=== PATIENT | female | born 1940 | race Caucasian/White ===

== ENCOUNTER 2016-12-17 14:25 | Outpatient (CLI) | payer MEDICARE, BC ==
[2016-12-17 12:56] LABS: BASOPHILS # (AUTO) 0.1 10^3/uL (0.0-0.1); BASOPHILS % (AUTO) 1.1 %; EOSINOPHILS # (AUTO) 0.4 10^3/uL (0.0-0.7); EOSINOPHILS % (AUTO) 4.4 %; HCT - HEMATOCRIT 35.2 % (37.0-47.0); HGB - HEMOGLOBIN 11.7 g/dL (12.0-16.0); LYMPHOCYTES % (AUTO) 20.3 %; MEAN CORPUSCULAR HEMOGLOBIN 29.9 pg (27.0-31.0); MEAN CORPUSCULAR HGB CONC 33.3 g/dL (32.0-36.0); MEAN CORPUSCULAR VOLUME 89.8 fL (81.0-99.0); MEAN PLATELET VOLUME 8.6 fL (7.9-10.8); MONOCYTES # (AUTO) 0.9 10^3/uL (0.0-1.0); MONOCYTES % (AUTO) 9.5 %; NEUTROPHILS # (AUTO) 6.3 10^3/uL (1.5-6.6); NEUTROPHILS % (AUTO) 64.7 %; NUCLEATED RED BLOOD CELLS AUTO 0.1 /100WBC; RED BLOOD COUNT 3.92 10^6/uL (4.20-5.40); UNCORRECTED WHITE BLOOD COUNT 9.7 x10^3/uL; WHITE BLOOD COUNT 9.7 x10^3/uL (4.8-10.8)
[2016-12-17 13:15] LABS: CALCIUM 10.4 mg/dL (8.5-10.3); CARBON DIOXIDE - CO2 29 mmol/L (21-32); CHLORIDE 95 mmol/L (101-111); GLUCOSE 102 mg/dL (70-100); POTASSIUM 3.8 mmol/L (3.5-5.0); SODIUM 133 mmol/L (135-145)
[2016-12-17 13:33] LABS: ALBUMIN/GLOBULIN RATIO 1.4 (1.0-2.2); BILIRUBIN,TOTAL 0.6 mg/dL (0.2-1.0); BUN - BLOOD UREA NITROGEN 28 mg/dL (6-20); CHOL/HDL RATIO 3.1 (<4.4); CHOLESTEROL 172 mg/dL; CREATININE 1.5 mg/dL (0.4-1.0); GFR - MDRD 34 (>89); HDL CHOLESTEROL 56 mg/dL; LDL/HDL RATIO 1.7 (<4.4); TOTAL PROTEIN 6.9 g/dL (6.7-8.2); TRIGLYCERIDES 103 mg/dL; VLDL CHOLESTEROL 21 mg/dL
== END 2016-12-17 14:26 | disposition home or self-care (01) ==
LOC: LAB.WCP 14:25
PROVIDERS: ATTEND Family Medicine
DX: I10 Essential (primary) hypertension (principal); E03.9 Hypothyroidism, unspecified; E78.5 Hyperlipidemia, unspecified; D64.9 Anemia, unspecified
CPT/HCPCS: 36415; 80053; 80061; 84443; 85025

== ENCOUNTER 2016-12-27 12:50 | Outpatient (CLI) | payer MEDICARE, BC | END 2016-12-27 12:51 | disposition home or self-care (01) | LOC: DI 12:50 | PROVIDERS: ATTEND Family Medicine | DX: R01.1 Cardiac murmur, unspecified (principal); I51.7 Cardiomegaly | CPT/HCPCS: 93306 ==

== ENCOUNTER 2017-03-31 20:51 | Outpatient (CLI) | payer MEDICARE, BC ==
[2017-03-31 19:13] LABS: CALCIUM 10.1 mg/dL (8.5-10.3); CREATININE 1.4 mg/dL (0.4-1.0); MAGNESIUM 1.8 mg/dL (1.7-2.8)
== END 2017-03-31 20:52 | disposition home or self-care (01) ==
LOC: LAB.WCP 20:51
PROVIDERS: ATTEND Internal Medicine Cardiovascular Disease
DX: I10 Essential (primary) hypertension (principal)
CPT/HCPCS: 36415; 80048; 83735; 84443

== ENCOUNTER 2017-07-06 12:18 | Outpatient (CLI) | payer MEDICARE, BC ==
--- NOTE | 2017-07-07 10:26 | Mammography Report ---
DIGITAL SCREENING MAMMOGRAM: 07/06/2017 CLINICAL INDICATION: A 76-year-old for screening. COMPARISON: 02/2016, 02/2015, 01/2014, 01/2013, 01/2012, 01/2011, 01/2010. TECHNIQUE: Routine CC and MLO projections were obtained of the breasts. FINDINGS: The breasts again demonstrate fatty replacement bilaterally. Coarse and punctate, typically benign calcifications are present. No suspicious masses, clustered microcalcifications, or regions of architectural distortion are identified. IMPRESSION: BENIGN FINDINGS. RECOMMENDATION: Routine annual screening unless otherwise clinically indicated. BIRADS CATEGORY 2 - BENIGN FINDINGS. STANDARD QUALIFYING STATEMENTS: 1. This examination was reviewed with the aid of Computer-Aided Detection (CAD). 2. A negative or benign imaging report should not delay biopsy if clinically suspicious findings are present. Consider surgical consultation if warranted. More than 5% of cancers are not identified by imaging. 3. Dense breasts may obscure an underlying neoplasm. TD: 07/07/2017 10:25
== END 2017-07-06 12:19 | disposition home or self-care (01) ==
LOC: DI.N 12:18
PROVIDERS: ATTEND Family Medicine
DX: Z12.31 Encounter for screening mammogram for malignant neoplasm of breast (principal)
CPT/HCPCS: 77067

== ENCOUNTER 2017-07-23 11:41 | Outpatient (CLI) | payer MEDICARE, BC ==
[2017-07-23 19:23] LABS: BASOPHILS # (AUTO) 0.1 10^3/uL (0.0-0.1); BASOPHILS % (AUTO) 1.2 %; EOSINOPHILS # (AUTO) 0.2 10^3/uL (0.0-0.7); EOSINOPHILS % (AUTO) 3.2 %; LYMPHOCYTES # (AUTO) 1.9 10^3/uL (1.5-3.5); LYMPHOCYTES % (AUTO) 25.4 %; MEAN CORPUSCULAR HEMOGLOBIN 30.5 pg (27.0-31.0); MEAN CORPUSCULAR HGB CONC 32.7 g/dL (32.0-36.0); MEAN CORPUSCULAR VOLUME 93.2 fL (81.0-99.0); MEAN PLATELET VOLUME 8.5 fL (7.9-10.8); MONOCYTES # (AUTO) 0.7 10^3/uL (0.0-1.0); MONOCYTES % (AUTO) 9.1 %; NEUTROPHILS # (AUTO) 4.5 10^3/uL (1.5-6.6); NEUTROPHILS % (AUTO) 61.1 %; PLT - PLATELET COUNT 297 10^3/uL (130-450); RED BLOOD COUNT 3.61 10^6/uL (4.20-5.40); RED CELL DISTRIBUTION WIDTH 16.2 % (12.0-15.0); WHITE BLOOD COUNT 7.4 x10^3/uL (4.8-10.8)
[2017-07-23 19:51] LABS: ALBUMIN/GLOBULIN RATIO 1.3 (1.0-2.2); ALKALINE PHOSPHATASE 39 IU/L (42-121); ALT ALANINE AMINOTRANSFERASE 16 IU/L (10-60); AST ASPARTATE AMINOTRANSFERASE 23 IU/L (10-42); BILIRUBIN,TOTAL 0.4 mg/dL (0.2-1.0); BUN - BLOOD UREA NITROGEN 36 mg/dL (6-20); CALCIUM 10.5 mg/dL (8.5-10.3); CARBON DIOXIDE - CO2 29 mmol/L (21-32); CHLORIDE 98 mmol/L (101-111); CHOL/HDL RATIO 3.5 (<4.4); CHOLESTEROL 179 mg/dL; CREATININE 1.3 mg/dL (0.4-1.0); GFR - MDRD 40 (>89); GLUCOSE 95 mg/dL (70-100); HDL CHOLESTEROL 51 mg/dL; LDL CHOLESTEROL,CALCULATED 110 mg/dL; LDL/HDL RATIO 2.2 (<4.4); SODIUM 134 mmol/L (135-145); TOTAL PROTEIN 7.1 g/dL (6.7-8.2); VLDL CHOLESTEROL 18 mg/dL
== END 2017-07-23 11:42 | disposition home or self-care (01) ==
LOC: LAB.WCP 11:41
PROVIDERS: ATTEND Family Medicine
DX: E78.5 Hyperlipidemia, unspecified (principal); I12.9 Hypertensive chronic kidney disease with stage 1 through stage 4 chronic kidney disease, or unspecified chronic kidney disease; N18.9 Chronic kidney disease, unspecified; E03.9 Hypothyroidism, unspecified; D64.9 Anemia, unspecified
CPT/HCPCS: 36415; 80053; 80061; 83721; 84443; 85025

== ENCOUNTER 2017-10-07 08:00 | Outpatient (CLI) | payer MEDICARE, BC ==
[2017-10-07 19:02] LABS: CALCIUM 10.6 mg/dL (8.5-10.3); CREATININE 1.2 mg/dL (0.4-1.0); MAGNESIUM 1.9 mg/dL (1.7-2.8)
== END 2017-10-07 08:01 ==
LOC: LAB.WCP 08:00
PROVIDERS: ATTEND Internal Medicine Cardiovascular Disease
DX: I49.3 Ventricular premature depolarization (principal)
CPT/HCPCS: 36415; 80048; 83735

== ENCOUNTER → 2018-01-21 | Outpatient (CLI) | payer MEDICARE, BC ==
[2018-01-21 18:46] LABS: BASOPHILS # (AUTO) 0.1 10^3/uL (0.0-0.1); BASOPHILS % (AUTO) 0.9 %; EOSINOPHILS # (AUTO) 0.3 10^3/uL (0.0-0.7); EOSINOPHILS % (AUTO) 3.7 %; HGB - HEMOGLOBIN 11.5 g/dL (12.0-16.0); LYMPHOCYTES % (AUTO) 25.2 %; MEAN CORPUSCULAR HGB CONC 33.4 g/dL (32.0-36.0); MEAN CORPUSCULAR VOLUME 92.8 fL (81.0-99.0); MEAN PLATELET VOLUME 8.2 fL (7.9-10.8); MONOCYTES # (AUTO) 0.9 10^3/uL (0.0-1.0); MONOCYTES % (AUTO) 10.9 %; NEUTROPHILS # (AUTO) 4.8 10^3/uL (1.5-6.6); NEUTROPHILS % (AUTO) 59.3 %; PLT - PLATELET COUNT 311 10^3/uL (130-450); RED BLOOD COUNT 3.69 10^6/uL (4.20-5.40); WHITE BLOOD COUNT 8.1 x10^3/uL (4.8-10.8)
[2018-01-21 18:59] LABS: ALBUMIN 3.8 g/dL (3.2-5.5); ALBUMIN/GLOBULIN RATIO 1.2 (1.0-2.2); BILIRUBIN,TOTAL 0.7 mg/dL (0.2-1.0); CALCIUM 9.6 mg/dL (8.5-10.3); CREATININE 1.2 mg/dL (0.4-1.0); TOTAL PROTEIN 7.1 g/dL (6.7-8.2)
== END ==
LOC: LAB.WCP 11:40
PROVIDERS: ATTEND Family Medicine
DX: N18.9 Chronic kidney disease, unspecified (principal); E78.5 Hyperlipidemia, unspecified; E03.9 Hypothyroidism, unspecified; I10 Essential (primary) hypertension; D64.9 Anemia, unspecified
CPT/HCPCS: 36415; 80053; 84443; 85025

== ENCOUNTER 2018-01-24 14:32 | Outpatient (CLI) | payer MEDICARE, BC | END 2018-01-24 14:33 | disposition EMS.NT | LOC: EMS 14:32 | PROVIDERS: ATTEND Surgery | DX: M25.512 Pain in left shoulder (principal); R20.0 Anesthesia of skin; W01.0XXA Fall on same level from slipping, tripping and stumbling without subsequent striking against object, initial encounter; Y92.008 Other place in unspecified non-institutional (private) residence as the place of occurrence of the external cause ==

== ENCOUNTER 2018-05-06 14:06 | Outpatient (CLI) | payer MEDICARE, BC ==
--- NOTE | 2018-05-07 14:49 | XRAY Report ---
Reason: BACK PAIN LUMBAR Procedure Date: 05/06/2018 Accession Number: [id number] / [id number] Procedure: WCP - Lumbar Spine 2 View CPT Code: FULL RESULT: EXAM: LUMBOSACRAL SPINE RADIOGRAPHY EXAM DATE: 05/06/2018 02:29 PM. CLINICAL HISTORY: Back pain. COMPARISONS: None. TECHNIQUE: 2 views. FINDINGS: Alignment: There is levoscoliosis of the lumbar spine with Jose angle of 11 degrees from T10-L4. There is 10 mm, grade 1 anterolisthesis at L4-L5. Bones: Five oqf-vol-cjleqkd lumbar vertebral bodies are present. No conspicuous displaced fracture is demonstrated. Disks: Severe degenerative disk disease present at L3-L4, asymmetric towards the left secondary to scoliosis. Moderate disk height loss present elsewhere. Facets: Moderate-severe facet degeneration at L3-L4, L4-L5, and L5-S1. Sacroiliac Joints: Alignment is within normal limits. Soft Tissues: Visualized bowel gas pattern is unremarkable. Left hip prosthesis partially visualized. Aortic atherosclerotic calcification demonstrated. IMPRESSION: 1. Multilevel degenerative changes, as described above. 2. Mild levoscoliosis of the lumbar spine. 3. Grade 1 anterolisthesis at L4-L5. RADIA
== END 2018-05-06 14:07 | disposition home or self-care (01) ==
LOC: DI.WCP 14:06
PROVIDERS: ATTEND Family Medicine
DX: M51.36 Other intervertebral disc degeneration, lumbar region (principal); M47.9 Spondylosis, unspecified; M41.86 Other forms of scoliosis, lumbar region
CPT/HCPCS: 72100

== ENCOUNTER 2018-07-22 13:26 | Outpatient (CLI) | payer MEDICARE, BC ==
--- NOTE | 2018-07-22 16:25 | Mammography Report ---
Reason: CR: 1.9 DRAWN: [id number] Procedure Date: 07/22/2018 Accession Number: [id number] / [id number] Procedure: MGN - Screening Mammo Dig Bilat CPT Code: FULL RESULT: EXAM: Screening Mammo Dig Bilat DATE: 07/22/2018 2:22 PM CLINICAL HISTORY: Routine screening TECHNIQUE: (B) - Bilateral CC and MLO views were obtained. COMPARISON: 07/06/2017, 03/18/2016, 03/02/2015 and 02/10/2014 PARENCHYMAL PATTERN: (F) - The breasts demonstrate diffuse fatty replacement bilaterally. FINDINGS: There is no significant interval change. There are no suspicious masses, calcifications, or areas of distortion. IMPRESSION: Negative examination. BI-RADS category 1. RECOMMENDATION: (ANNUAL) - Recommend routine annual screening mammography. BI-RADS CATEGORY: (1) - Negative. STANDARD QUALIFYING STATEMENTS: 1. This examination was not reviewed with the aid of Computer-Aided Detection (CAD). 2. A negative or benign imaging report should not preclude biopsy if clinically suspicious findings are present. 3. Dense breasts may obscure an underlying neoplasm. 4. This examination was reviewed without the aid of 3D breast imaging (tomosynthesis).
== END 2018-07-22 13:27 | disposition home or self-care (01) ==
LOC: DI.N 13:26
DX: Z12.31 Encounter for screening mammogram for malignant neoplasm of breast (principal)
CPT/HCPCS: 77067

== ENCOUNTER 2018-10-01 13:26 | Outpatient (CLI) | payer MEDICARE, BC ==
--- NOTE | 2018-10-01 18:15 | MRI Report ---
Reason: LUMBAR RADICULOPATHY Procedure Date: 10/01/2018 Accession Number: [id number] / [id number] Procedure: MRI - Lumbar Spine W/O CPT Code: FULL RESULT: MRI LUMBAR SPINE WITHOUT CONTRAST. INDICATION: 77-year-old female with lumbar radiculopathy. TECHNIQUE: 1. Sagittal STIR, T1 and T2. 2. Axial T1 and T2. COMPARISON: 08/14/2010 FINDINGS: Radiographs (05/06/2018 have been reviewed, confirming the presence of 5 zpy-xqo-njlsrks, lumbar type vertebrae. There is a mild, levoconvex lumbar scoliosis with apex at about the L2-L3 disk level. In the sagittal plane again demonstrated is anterolisthesis of L4 on L5. The anterior subluxation measures about 8 mm, essentially unchanged. No definite L4 pars interarticularis defect is identified. The anterior subluxation is probably from degenerative facet arthrosis. There has been interval development of a very minor anterior subluxation of L3 on L4, also likely degenerative in nature. In addition, there is new, minor retrolisthesis of T12 on L1 and L1 on L2. Alignment is otherwise unremarkable. Again demonstrated is mild anterior wedging of the T11 vertebral body, unchanged. The vertebral body heights are otherwise preserved. No evidence of recent compression fracture. There is absence of normal T2 signal from the disks at all levels. Schmorl node deformities are seen in the vertebral endplates at all levels from T10-T11 to L4 and L5. There is new, mild to moderate disk space narrowing at T12-L1. Mild to space narrowing is seen at L1-L2 (new). In addition, there has been interval development of moderate to severe disk space narrowing at L3-L4 and at least moderate narrowing at L4-L5. The disk space heights are otherwise preserved. Type I reactive marrow changes are identified in the vertebral endplates at L3-L4 on the right and had L4-L5 on the left. A few intraosseous hemangioma at are demonstrated. The marrow signal intensity is otherwise unremarkable. The conus has a normal appearance, terminating in appropriate fashion at about the T12-L1 disk level. There is no abnormal thickening or lipomatous change of the filum. Axial images: T11-T12: No disk herniation or spinal stenosis. The neural foramina are widely patent. T12-L1: Retrolisthesis. Circumferential disk bulge. Small intraforaminal/extraforaminal protrusions bilaterally. No significant spinal stenosis. The neural foramina are widely patent. L1-L2: Retrolisthesis. Circumferential disk bulge. Small intraforaminal/extraforaminal protrusions or extrusions bilaterally. The subarticular zones are narrowed; however, the no impingement of traversing right or left-sided nerve roots is seen. No significant central zone spinal stenosis. Mild foraminal stenoses. L2-L3: Broad-based, left intraforaminal/extraforaminal extrusion. Degenerative facet arthrosis with mild bony hypertrophy. Mild to moderate redundancy of the ligamenta flava. The subarticular zones are narrowed left greater than right. However, there is no obvious impingement of traversing left L3 nerve root. No significant central zone spinal stenosis. Mild foraminal stenoses. L3-L4: Anterolisthesis with associated uncovering of the disk. In addition, there is a small broad-based, superiorly directed central/right paracentral extrusion and small left paracentral extrusion. New, broad-based left intraforaminal/extraforaminal protrusion. New, broad-based right intraforaminal/extraforaminal extrusion. Degenerative facet arthrosis with mild to moderate bony hypertrophy. Mild to moderate redundancy of the ligamenta flava. The subarticular zones are stenosed, right greater than left. There could potentially be compromise of traversing L4 nerve roots especially on the right. There is moderate to severe central zone spinal stenosis. Mild to moderate left and moderate to severe right foraminal stenoses. Perineural fat surrounding the exiting right L3 nerve root is partially effaced. L4-L5: Anterolisthesis with associated uncovering of the disk. In addition, there is a broad-based, superiorly directed posterior extrusion that is new. Degenerative facet arthrosis with quite marked bony hypertrophy, similar to previous examination. Mild to moderate redundancy of the ligamenta flava. Broad-based intraforaminal/extraforaminal extrusion on the left is new. Superiorly directed, right-sided intraforaminal extrusion is also new. There is severe generalized (central and subarticular zone) spinal stenosis, showing little interval progression when compared to the previous examination. There are moderate to severe foraminal stenoses bilaterally. The perineural fat surrounding exiting L4 nerve roots appears partially effaced. This is new. L5-S1: Small, broad-based, posterior protrusion confined to the ventral epidural fat. Small extraforaminal protrusions are seen bilaterally. Again demonstrated is fairly advanced degenerative facet arthrosis with quite marked bony hypertrophy. In addition, there is mild to moderate redundancy of the ligamenta flava. There is left subarticular zone narrowing that appears relatively severe and has progressed since the previous examination. There certainly could be compromise of traversing left S1 nerve root. No central zone spinal stenosis or significant right subarticular zone narrowing. There is moderate left foraminal stenosis, unchanged. No right foraminal narrowing. Moderate to marked fatty atrophy is identified in the posterior paraspinal musculature. IMPRESSION: 1. Again demonstrated is a grade I degenerative anterolisthesis of L4 on L5, essentially unchanged. There has been interval development of minor degenerative anterolisthesis of L3 on L4. 2. Degenerative disk and facet changes are seen throughout the lumbar spine showing definite interval progression when compared to the previous MRI study of 08/14/2010. There are associated, central, subarticular and foraminal zone stenoses. The most significant stenoses are as follows: A. At L3-L4 there are new, subarticular zone stenoses, worse on the right than the left. There certainly could be compromise of traversing L4 nerve roots especially on the right. In addition, there is potentially significant right L3-L4 foraminal stenosis. There could be compromise of exiting right L3 nerve root. B. At L4-L5 again demonstrated is severe generalized (central and subarticular zone causing apparent spinal stenosis. In addition, there has been interval progression in foraminal narrowing with relatively severe stenosis now demonstrated bilaterally. The perineural fat surrounding the exiting L4 nerve roots is effaced and there could be irritation or mild impingement of the L4 nerve roots. C. Interval progression in left subarticular zone stenosis at L5-S1. There certainly could be compromise of the traversing left S1 nerve root. Recommend clinical correlation for possible left S1 radiculopathy.
== END 2018-10-01 13:27 | disposition home or self-care (01) ==
LOC: DI 13:26
PROVIDERS: ATTEND Family Medicine
DX: M51.16 Intervertebral disc disorders with radiculopathy, lumbar region (principal); M48.061 Spinal stenosis, lumbar region without neurogenic claudication
CPT/HCPCS: 72148

== ENCOUNTER 2018-12-01 10:24 | Outpatient (CLI) | payer MEDICARE, BC ==
[2018-12-01 13:04] LABS: ALBUMIN 3.9 g/dL (3.2-5.5); ALBUMIN/GLOBULIN RATIO 1.3 (1.0-2.2); ALKALINE PHOSPHATASE 52 IU/L (42-121); ALT ALANINE AMINOTRANSFERASE 18 IU/L (10-60); AST ASPARTATE AMINOTRANSFERASE 24 IU/L (10-42); BILIRUBIN,TOTAL 0.7 mg/dL (0.2-1.0); BUN - BLOOD UREA NITROGEN 29 mg/dL (6-20); CALCIUM 9.3 mg/dL (8.5-10.3); CARBON DIOXIDE - CO2 32 mmol/L (21-32); CHLORIDE 95 mmol/L (101-111); CHOL/HDL RATIO 3.2 (<4.4); CHOLESTEROL 175 mg/dL; CREATININE 1.2 mg/dL (0.4-1.0); GFR - MDRD 43 (>89); GLUCOSE 87 mg/dL (70-100); HDL CHOLESTEROL 55 mg/dL; LDL CHOLESTEROL,CALCULATED 106 mg/dL; LDL/HDL RATIO 1.9 (<4.4); SODIUM 133 mmol/L (135-145); TOTAL PROTEIN 6.8 g/dL (6.7-8.2); VLDL CHOLESTEROL 14 mg/dL
== END 2018-12-01 10:30 | disposition home or self-care (01) ==
LOC: LAB.N 10:24
PROVIDERS: ATTEND Internal Medicine Cardiovascular Disease
DX: I10 Essential (primary) hypertension (principal); R78.5 Finding of other psychotropic drug in blood
CPT/HCPCS: 36415; 80053; 80061; 83721

== ENCOUNTER 2018-12-28 15:10 | Outpatient (CLI) | payer MEDICARE, BC ==
--- NOTE | 2018-12-28 17:07 | DEXA Report ---
Reason: OSTEOPOROSIS Procedure Date: 12/28/2018 Accession Number: [id number] / [id number] Procedure: DEX - Dexa Spine and/or Hip CPT Code: FULL RESULT: EXAM: Dexa Spine and/or Hip DATE: 12/28/2018 3:30 PM CLINICAL HISTORY: OSTEOPOROSIS TECHNIQUE: Dual energy x-ray absorptiometry (DXA) was performed on a [employer] System. Regions measured are the AP Spine, femoral neck, and if needed forearm. COMPARISON: None. In accordance with the International Society for Clinical Densitometry (ISCD) guidelines, data from previous exams may be reanalyzed using current recommendations and techniques. This is done to allow a more accurate basis for comparison with the current study. FINDINGS: The data for the lumbar spine is as follows: BMD (g/cm/cm) T-SCORE Z-SCORE REGION L1 1.180 0.4 1.5 L2 1.128 -0.6 0.4 L3 1.426 1.9 2.9 L4 1.615 3.5 4.5 TOTAL 1.361 1.5 2.5 NOTE: All evaluable vertebrae are used for classification The data for the hip is as follows: BMD (g/cm/cm) T-SCORE Z-SCORE REGION Neck 1.014 -0.2 1.4 TOTAL 0.978 -0.2 1.1 NOTE: The femoral neck or total proximal femur, whichever is lowest, is used for classification. IMPRESSION: THE WHO CLASSIFICATION BASED ON THE INTERNATIONAL REFERENCE STANDARD IS NORMAL. THE FRACTURE RISK IS NOT INCREASED. RECOMMENDATION: Patients with diagnosis of osteoporosis or osteopenia should have regular bone mineral density assessment. For those eligible for Medicare, routine testing is allowed once every 2 years. Testing frequency can be increased for patients who have rapidly progressing disease or for those who are receiving medical therapy to restore bone mass. COMMENT: World Health Organization (WHO) definitions for osteoporosis and osteopenia: NORMAL BMD: T-score at -1.0 or higher, fracture risk is low OSTEOPENIA BMD: T-score between -1.0 and -2.5, fracture risk is increased. OSTEOPOROSIS BMD: T-score at -2.5 or lower, fracture risk is high. National Osteoporosis Foundation recommends: 1. Obtain adequate dietary calcium (at least 1200 mg per day) and vitamin D (400-800 international units per day). 2. Participate, as appropriate, in regular weightbearing and muscle-strengthening exercise. 3. Avoid tobacco use and reduce alcohol and caffeine intake. 4. For more detailed information see the website at www.NOF.org.
== END 2018-12-28 15:11 | disposition home or self-care (01) ==
LOC: DI 15:10
PROVIDERS: ATTEND Family Medicine
DX: M81.0 Age-related osteoporosis without current pathological fracture (principal)
CPT/HCPCS: 77080

== ENCOUNTER 2019-09-02 08:00 | Outpatient (CLI) | payer MEDICARE, BC ==
[2019-09-02 18:55] LABS: BASOPHILS # (AUTO) 0.1 10^3/uL (0.0-0.1); BASOPHILS % (AUTO) 0.9 %; EOSINOPHILS # (AUTO) 0.5 10^3/uL (0.0-0.7); EOSINOPHILS % (AUTO) 4.2 %; LYMPHOCYTES # (AUTO) 2.3 10^3/uL (1.5-3.5); LYMPHOCYTES % (AUTO) 20.3 %; MEAN CORPUSCULAR HEMOGLOBIN 30.5 pg (27.0-31.0); MEAN CORPUSCULAR HGB CONC 32.2 g/dL (32.0-36.0); MEAN CORPUSCULAR VOLUME 94.8 fL (81.0-99.0); MEAN PLATELET VOLUME 9.8 fL (7.9-10.8); MONOCYTES # (AUTO) 1.3 10^3/uL (0.0-1.0); MONOCYTES % (AUTO) 11.4 %; NEUTROPHILS # (AUTO) 7.1 10^3/uL (1.5-6.6); NEUTROPHILS % (AUTO) 62.8 %; PLT - PLATELET COUNT 431 10^3/uL (130-450); RED BLOOD COUNT 3.28 10^6/uL (4.20-5.40); RED CELL DISTRIBUTION WIDTH 18.3 % (12.0-15.0); WHITE BLOOD COUNT 11.4 x10^3/uL (4.8-10.8)
[2019-09-02 19:11] LABS: ALBUMIN 3.8 g/dL (3.2-5.5); ALBUMIN/GLOBULIN RATIO 1.2 (1.0-2.2); BILIRUBIN,TOTAL 0.6 mg/dL (0.2-1.0); CALCIUM 9.2 mg/dL (8.5-10.3); CREATININE 1.7 mg/dL (0.4-1.0); MAGNESIUM 2.7 mg/dL (1.7-2.8); TOTAL PROTEIN 6.9 g/dL (6.7-8.2)
== END 2019-09-02 23:59 | disposition home or self-care (01) ==
LOC: LAB.WCP 08:00
PROVIDERS: ATTEND Family Medicine
DX: E83.52 Hypercalcemia (principal); E83.41 Hypermagnesemia; N17.9 Acute kidney failure, unspecified
CPT/HCPCS: 36415; 80053; 82330; 83735; 85025

== ENCOUNTER 2019-09-16 08:00 | Outpatient (CLI) | payer MEDICARE, BC ==
[2019-09-16 18:13] LABS: BASOPHILS # (AUTO) 0.1 10^3/uL (0.0-0.1); BASOPHILS % (AUTO) 0.8 %; EOSINOPHILS # (AUTO) 0.5 10^3/uL (0.0-0.7); EOSINOPHILS % (AUTO) 5.4 %; HGB - HEMOGLOBIN 9.3 g/dL (12.0-16.0); LYMPHOCYTES # (AUTO) 2.2 10^3/uL (1.5-3.5); LYMPHOCYTES % (AUTO) 22.3 %; MEAN CORPUSCULAR HEMOGLOBIN 29.3 pg (27.0-31.0); MEAN CORPUSCULAR HGB CONC 30.9 g/dL (32.0-36.0); MONOCYTES # (AUTO) 0.7 10^3/uL (0.0-1.0); MONOCYTES % (AUTO) 7.2 %; NEUTROPHILS # (AUTO) 6.3 10^3/uL (1.5-6.6); NEUTROPHILS % (AUTO) 63.7 %; PLT - PLATELET COUNT 379 10^3/uL (130-450); RED BLOOD COUNT 3.17 10^6/uL (4.20-5.40); RED CELL DISTRIBUTION WIDTH 17.9 % (12.0-15.0)
[2019-09-16 18:30] LABS: ALBUMIN 3.9 g/dL (3.2-5.5); ALBUMIN/GLOBULIN RATIO 1.2 (1.0-2.2); BILIRUBIN,TOTAL 0.6 mg/dL (0.2-1.0); CALCIUM 9.3 mg/dL (8.5-10.3); CREATININE 1.8 mg/dL (0.4-1.0); TOTAL PROTEIN 7.2 g/dL (6.7-8.2)
== END 2019-09-16 23:59 | disposition home or self-care (01) ==
LOC: LAB.WCP 08:00
PROVIDERS: ATTEND Family Medicine
DX: N17.9 Acute kidney failure, unspecified (principal); E83.52 Hypercalcemia
CPT/HCPCS: 36415; 80053; 83519; 83970; 85025

== ENCOUNTER 2019-10-05 16:30 | Outpatient (CLI) | payer MEDICARE, BC ==
[2019-10-05 18:57] LABS: ALBUMIN 4.4 g/dL (3.2-5.5); ALBUMIN/GLOBULIN RATIO 1.3 (1.0-2.2); BILIRUBIN,TOTAL 0.5 mg/dL (0.2-1.0); CALCIUM 9.9 mg/dL (8.5-10.3); CREATININE 1.6 mg/dL (0.4-1.0); TOTAL PROTEIN 7.8 g/dL (6.7-8.2)
== END 2019-10-05 23:59 | disposition home or self-care (01) ==
LOC: LAB.WCP 16:30
PROVIDERS: ATTEND Family Medicine
DX: N18.9 Chronic kidney disease, unspecified (principal)
CPT/HCPCS: 36415; 80053

== ENCOUNTER 2020-05-08 08:00 | Outpatient (CLI) | payer MEDICARE, BC ==
[2020-05-08 17:53] LABS: BASOPHILS # (AUTO) 0.1 10^3/uL (0.0-0.1); EOSINOPHILS # (AUTO) 0.3 10^3/uL (0.0-0.7); EOSINOPHILS % (AUTO) 3.6 %; HGB - HEMOGLOBIN 10.5 g/dL (12.0-16.0); LYMPHOCYTES % (AUTO) 23.9 %; MEAN CORPUSCULAR HEMOGLOBIN 29.8 pg (27.0-31.0); MEAN CORPUSCULAR VOLUME 93.2 fL (81.0-99.0); MEAN PLATELET VOLUME 9.9 fL (7.9-10.8); MONOCYTES % (AUTO) 12.4 %; NEUTROPHILS # (AUTO) 4.9 10^3/uL (1.5-6.6); NEUTROPHILS % (AUTO) 58.7 %; PLT - PLATELET COUNT 283 10^3/uL (130-450); RED BLOOD COUNT 3.52 10^6/uL (4.20-5.40); RED CELL DISTRIBUTION WIDTH 17.2 % (12.0-15.0); WHITE BLOOD COUNT 8.3 x10^3/uL (4.8-10.8)
[2020-05-08 18:05] LABS: CALCIUM 9.2 mg/dL (8.5-10.3); CREATININE 1.4 mg/dL (0.4-1.0); PHOSPHORUS 4.4 mg/dL (2.5-4.6)
== END 2020-05-08 23:59 | disposition home or self-care (01) ==
LOC: LAB.WCP 08:00
PROVIDERS: ATTEND Internal Medicine Nephrology
DX: N18.30 Chronic kidney disease, stage 3 unspecified (principal)
CPT/HCPCS: 36415; 80069; 85025

== ENCOUNTER 2020-07-19 08:00 | Outpatient (CLI) | payer MEDICARE, BC ==
[2020-07-19 18:52] LABS: ABSOLUTE RETICS # AUTO 0.048 10^6/uL (0.020-0.110); BASOPHILS # (AUTO) 0.1 10^3/uL (0.0-0.1); EOSINOPHILS # (AUTO) 0.2 10^3/uL (0.0-0.7); EOSINOPHILS % (AUTO) 2.8 %; HCT - HEMATOCRIT 36.3 % (37.0-47.0); HGB - HEMOGLOBIN 11.7 g/dL (12.0-16.0); MEAN CORPUSCULAR HGB CONC 32.2 g/dL (32.0-36.0); MEAN CORPUSCULAR VOLUME 93.1 fL (81.0-99.0); MEAN PLATELET VOLUME 9.9 fL (7.9-10.8); MONOCYTES # (AUTO) 0.9 10^3/uL (0.0-1.0); MONOCYTES % (AUTO) 11.4 %; NEUTROPHILS # (AUTO) 4.8 10^3/uL (1.5-6.6); NEUTROPHILS % (AUTO) 59.5 %; PLT - PLATELET COUNT 275 10^3/uL (130-450); RED CELL DISTRIBUTION WIDTH 16.6 % (12.0-15.0); RETICULOCYTE COUNT % (AUTO) 1.24 % (0.5-2.3)
[2020-07-19 19:24] LABS: THYROID STIMULATING HORMONE 1.97 uIU/mL (0.34-5.60)
[2020-07-19 19:26] LABS: % IRON SATURATION 24 % (20-50); ALBUMIN 4.2 g/dL (3.2-5.5); ALBUMIN/GLOBULIN RATIO 1.3 (1.0-2.2); ALKALINE PHOSPHATASE 56 IU/L (42-121); ALT ALANINE AMINOTRANSFERASE 17 IU/L (10-60); AST ASPARTATE AMINOTRANSFERASE 25 IU/L (10-42); BILIRUBIN,TOTAL 0.7 mg/dL (0.2-1.0); BUN - BLOOD UREA NITROGEN 33 mg/dL (6-20); CALCIUM 9.7 mg/dL (8.5-10.3); CARBON DIOXIDE - CO2 29 mmol/L (21-32); CHLORIDE 93 mmol/L (101-111); CHOL/HDL RATIO 3.3 (<4.4); CHOLESTEROL 230 mg/dL; CREATININE 1.2 mg/dL (0.4-1.0); GFR - MDRD 43 (>89); GLUCOSE 91 mg/dL (70-100); HDL CHOLESTEROL 70 mg/dL; IRON 88 ug/dL (28-170); LDL CHOLESTEROL,CALCULATED 145 mg/dL; LDL/HDL RATIO 2.1 (<4.4); PHOSPHORUS 4.6 mg/dL (2.5-4.6); POTASSIUM 4.7 mmol/L (3.5-5.0); SODIUM 131 mmol/L (135-145); TOTAL IRON BINDING CAPACITY 374 ug/dL (250-450); TOTAL PROTEIN 7.4 g/dL (6.7-8.2); TRANSFERRIN 267 mg/dL (192-382); TRIGLYCERIDES 74 mg/dL; VLDL CHOLESTEROL 15 mg/dL
[2020-07-19 19:31] LABS: FERRITIN 39.5 ng/mL (11.0-306.8)
== END 2020-07-19 23:59 | disposition home or self-care (01) ==
LOC: LAB.WCP 08:00
PROVIDERS: ATTEND Internal Medicine
DX: N18.9 Chronic kidney disease, unspecified (principal); E78.5 Hyperlipidemia, unspecified; D64.9 Anemia, unspecified; E03.9 Hypothyroidism, unspecified
CPT/HCPCS: 36415; 80053; 80061; 82306; 82607; 82668; 82728; 83540; 83721; 83970; 84100; 84443; 84466; 85025; 85045

== ENCOUNTER 2020-07-23 08:00 | Outpatient (CLI) | payer MEDICARE, BC ==
[2020-07-23 20:44] LABS: BILIRUBIN,URINE NEGATIVE (NEGATIVE); GLUCOSE, URINE (UA) NEGATIVE (NEGATIVE); KETONES,URINE (UA) NEGATIVE (NEGATIVE); LEUKOCYTE ESTERASE, URINE SMALL (NEGATIVE); NITRITE,URINE NEGATIVE (NEGATIVE); OCCULT BLOOD,URINE NEGATIVE (NEGATIVE); PROTEIN,URINE NEGATIVE (NEGATIVE); UROBILINOGEN,URINE 0.2 (NORMAL) E.U./dL (NORMAL)
[2020-07-23 20:55] LABS: CLARITY,URINE HAZY (CLEAR)
[2020-07-23 21:00] LABS: BACTERIA,URINE Many /HPF (None Seen); RBC,URINE 0-5 /HPF (0-5); SQUAMOUS EPITHELIAL CELL,UR NONE SEEN (<= Few)
== END 2020-07-23 23:59 | disposition home or self-care (01) ==
LOC: LAB.WCP 08:00
PROVIDERS: ATTEND Internal Medicine
DX: R35.1 Nocturia (principal)
CPT/HCPCS: 81001; 87077; 87086; 87181

== ENCOUNTER 2020-08-30 14:42 | Outpatient (CLI) | payer MEDICARE, BC ==
--- NOTE | 2020-08-31 08:57 | Mammography Report ---
BILATERAL DIGITAL SCREENING MAMMOGRAM 3D/2D: 08/30/2020 CLINICAL: Routine screening. Comparison is made to exams dated: 07/22/2018 mammogram, 07/06/2017 mammogram, 03/18/2016 mammogram, mammogram, 02/10/2014 mammogram, and 02/08/2013 mammogram - . T he tissue of both breasts is predominantly fatty. No significant masses, calcifications, or other findings are seen in either breast. There has been no significant interval change. IMPRESSION: NEGATIVE There is no mammographic evidence of malignancy. A 1 year screening mammogram is recommended. This exam was interpreted at Station ID: [id number]. NOTE: For mammograms, a report in lay terms will be sent to the patient. Approximately 15% of breast malignancies will not be visualized mammographically. In the management of a palpable breast mass, a negative mammogram must not discourage biopsy of a clinically suspicious lesion. Electronically Signed By: Jose Carrillo M.D., jr/dhaval:08/30/2020 15:33:57 ACR BI-RADS Category 1: Negative 3341F PARENCHYMAL PATTERN: (F) - The breast(s) demonstrate(s) diffuse fatty replacement. BI-RADS CATEGORY: (1) - 1 RECOMMENDATION: (ANNUAL) - Recommend routine annual screening mammography. [id number] 1 year screening LATERALITY: (B)
== END 2020-08-30 14:43 | disposition home or self-care (01) ==
LOC: DI 14:42
PROVIDERS: ATTEND Internal Medicine
DX: Z12.31 Encounter for screening mammogram for malignant neoplasm of breast (principal)

== ENCOUNTER 2020-08-30 14:44 | Outpatient (CLI) | payer MEDICARE, BC ==
--- NOTE | 2020-08-30 15:48 | DEXA Report ---
PROCEDURE: Dexa Spine and/or Hip INDICATIONS: POST MENOPAUSAL TECHNIQUE: Dual energy x-ray absorptiometry (DXA) was performed on a [employer] System. Regions measur ed are the AP Spine, femoral neck, and if needed forearm. COMPARISON: Prior similar study 12/28/2018 reviewed.. FINDINGS: Lumbar Spine: Bone Mineral Density 1.340 g/cm/cm,T score 1.3, normal, and this represents a nonsignificant 1.5% reduction in bone mineral density of the LS-spine overall. Left Hip: Bone Mineral Density 0.930 g/cm/cm,T score -0.6, normal. This represents a statistically significant mild interval reduction in bone mineral density of 4.9%. Left Femoral Neck: Bone Mineral Density 0.949 g/cm/cm, T score -0.6, normal. (T score greater or equal to -1.0: NORMAL) (T score from -1.1 to -2.4: OSTEOPENIA) (T score less than or equal to -2.5 to: OSTEOPOROSIS) Impression: Normal bone mineral density at the lumbosacral spine overall, the left hip overall and th e left femoral neck. There is a statistically significant interval reduction of bone mineral density, however, a 4.9% at the left hip region overall. Patients with diagnosis of osteoporosis or osteopenia should have regular bone mineral density assess ment. For those eligible for Medicare, routine testing is allowed once every 2 years. Testing frequ ency can be increased for patients who have rapidly progressing disease or for those who are receivin g medical therapy to restore bone mass. Reviewed by: Justen Rosas MD on 08/30/2020 3:46 PM PDT Approved by: Justen Rosas MD on 08/30/2020 3:46 PM PDT Station ID: [id number]
== END 2020-08-30 14:45 | disposition home or self-care (01) ==
LOC: DI 14:44
PROVIDERS: ATTEND Internal Medicine
DX: Z78.0 Asymptomatic menopausal state (principal)

== ENCOUNTER 2020-10-19 16:54 | Emergency (ER) | payer MEDICARE, BC ==
--- NOTE | 2020-10-19 17:45 | ED Physician Documentation ---
PD HPI BACK PAIN - Stated complaint Stated Complaint: BACK SPASMS - Chief complaint Chief Complaint: Back Pain - History obtained from History obtained from: Patient - Additional information Additional information: 79-year-old woman with longstanding back spasms. Managed well a few years ago with injection by a back surgeon. Much worse over the last 2 weeks. Feels like somebody is stabbing us knife in her spine and twisting it. Worse with lifting. Review of Systems Constitutional: reports: Reviewed and negative. denies: Fever, Chills Ears: reports: Reviewed and negative Nose: reports: Reviewed and negative PD PAST MEDICAL HISTORY - Past Medical History Cardiovascular: Hypertension, High cholesterol Respiratory: None Endocrine/Autoimmune: HyPOthyroidism GI: Other : Frequency HEENT: Other Psych: None Musculoskeletal: Osteoarthritis, Other Derm: None - Past Surgical History Ortho: Hip replacement, Knee replacement /[employer]: Dilation and currettage HEENT: Cataracts - Present Medications Home Medications: Ambulatory Orders Medication Instructions Recorded Confirmed Aspirin EC [Ecotrin] 81 mg PO DAILY 12/03/12 04/18/14 Cetirizine HCl [Zyrtec] 10 mg PO DAILY 12/03/12 04/18/14 Levothyroxine Sodium [Levothroid] 137 mcg PO QDAC 12/03/12 04/18/14 Lovastatin 20 mg PO QPM 12/03/12 04/18/14 Metoprolol Tartrate 12.5 mg PO DAILY 12/03/12 04/18/14 Multivitamin [Multivitamins] 1 each PO DAILY 12/03/12 04/18/14 Naproxen Sodium [Aleve] 220 mg PO DAILY 12/03/12 04/18/14 Potassium Gluconate 550 mg PO BID 12/03/12 04/18/14 Tolterodine [Detrol LA] 4 mg PO DAILY 12/03/12 04/18/14 Travoprost 0.004% Ophth Drops 1 drops OPTH QPM 12/03/12 04/18/14 [Travatan Z] Triamterene/Hydrochlorothiazid 1 each PO DAILY 12/03/12 04/18/14 [Maxzide 75 mg-50 mg Tablet] Ascorbate Calcium [Vitamin C] 1,000 mg PO DAILY 04/14/14 04/18/14 Calcium Carbonate/Vitamin D3 1 each PO DAILY 04/14/14 04/18/14 [Calcium 600 + D3 Softgel] Cholecalciferol (Vitamin D3) 1,000 mg PO DAILY 04/14/14 04/18/14 [Vitamin D] Cyanocobalamin [Vitamin B-12] 500 mcg PO DAILY 04/14/14 04/18/14 Oxycodone HCl/Acetaminophen 1 - 2 each PO Q6H PRN #20 tablet 10/19/20 [Percocet 5-325 mg Tablet] - Allergies Allergies/Adverse Reactions: Allergies Allergy/AdvReac Type Severity Reaction Status Date / Time latex Allergy Intermediate Redness Verified 10/19/20 17:21 and itching tape Allergy Intermediate Redness Uncoded 10/19/20 17:21 and itching PD ED PE NORMAL - Vitals Vital signs reviewed: Yes - General General: Alert and oriented X 3, Other (Appears uncomfortable with occasional spasms.) - Back Back: No CVA TTP, Other ( She has muscular tenderness of the left paralumbar muscles. No midline spinal tenderness. The patient has equal and normal Achilles and patellar reflexes bilaterally. Normal sensation in all areas of the legs. Patient denies saddle anesthesia. Normal strength in flexion- extension at the ankles) - Derm Derm: Normal color, Warm and dry - Extremities Extremities: No edema, No calf tenderness / cord - Neuro Neuro: Alert and oriented X 3, Normal speech - Psych Psych: Normal mood, Normal affect Results - Vitals Vitals: Vital Signs - 24 hr 10/19/20 17:15 Temperature 36.5 C Heart Rate 67 Respiratory 18 Rate Blood Pressure 173/62 H O2 Saturation 97 Oxygen O2 Source [With Activity] Nasal cannula O2 Source Room air PD MEDICAL DECISION MAKING - ED course ED course: This patient has seemingly uncomplicated musculoskeletal back pain. The patient has no "red flags." Specifically denies IV drug use, fevers, incontinence, saddle anesthesia. Spinal epidural abscess was considered, given that the patient has no fever, is not diabetic, has no spinal tenderness, does not use IV drugs, and has no bilateral neurologic symptoms, the diagnosis of spinal epidural abscess is considered exceedingly unlikely. I am prescribing a short course of short-acting opioid pain medication for this patient. I have reviewed the patients [employer] and no concerning findings were noted. I have discussed that the opioids are for short term therapy only, and will not be refilled from the ED. Departure - Departure Disposition: 01 Home, Self Care Clinical Impression: Back spasm Condition: Good Record reviewed to determine appropriate education?: Yes Instructions: ED Low Back Pain Injury Prescriptions: Oxycodone HCl/Acetaminophen [Percocet 5-325 mg Tablet] 1 - 2 each PO Q6H PRN #20 tablet PRN Reason: pain Comments: I am prescribing a short course of narcotic pain medication for you. These are potentially dangerous and addictive medications that should be used carefully. These medications may constipate you. Take an nhun-dzl-qcxunwv stool softener (docusate) twice daily with plenty of water while taking these medications. If you go 24 hours without a bowel movement, take eqvk-xnl-wfuoief miralax, per package instructions. Do not drink or drive while taking these medications. If you received narcotic or sedating medications while in the emergency department, do not drive for 24 hours. Store this medication in a safe, secure place and out of reach of children. It is a violation of federal law to give or sell this medication to another person or to use in a manner other than prescribed. The ED will not refill narcotic prescriptions, including prescriptions lost or stolen. To dispose of unwanted medications: 1. [facility] [address] [facility] in [place] has a medication drop box. They accept prescription medications (in pill form) Thursday through Thursday 9:00 a.m. to 5:00 p.m. 2. The [facility] [employer] accepts prescription medications (in pill form only) for disposal year round. Call for more information. 3. Contact the [facility] for the next [facility] sponsored prescription drug collection event. , [phone], or [phone]; Note that many narcotic pain relievers also contain Tylenol/acetaminophen. Please ensure that your total dose of acetaminophen from all sources does not exceed 3 g (3000 mg) per day. Call your doctor to arrange a follow-up appointment, make the next available appointment. In the interim, return anytime if worse or if new symptoms dev elop.
[2020-10-19] MEDS ORDERED: oxyCODONE 5 MG TABLET PO STA (17:52)
[2020-10-19 18:07] VITALS: BP 164/86
== END 2020-10-19 18:12 | disposition home or self-care (01) ==
LOC: ED 16:54
DX: M62.830 Muscle spasm of back (principal); M54.5 Low back pain; I10 Essential (primary) hypertension; Z79.82 Long term (current) use of aspirin
CPT/HCPCS: 99282; 99284; A9270

== ENCOUNTER 2021-02-07 10:52 | Outpatient (CLI) | payer MEDICARE, BC ==
[2021-02-07 18:02] LABS: BASOPHILS # (AUTO) 0.1 10^3/uL (0.0-0.1); BASOPHILS % (AUTO) 1.1 %; EOSINOPHILS # (AUTO) 0.2 10^3/uL (0.0-0.7); EOSINOPHILS % (AUTO) 2.7 %; HCT - HEMATOCRIT 37.5 % (37.0-47.0); HGB - HEMOGLOBIN 11.9 g/dL (12.0-16.0); LYMPHOCYTES # (AUTO) 1.8 10^3/uL (1.5-3.5); LYMPHOCYTES % (AUTO) 23.6 %; MEAN CORPUSCULAR HEMOGLOBIN 30.8 pg (27.0-31.0); MEAN CORPUSCULAR HGB CONC 31.7 g/dL (32.0-36.0); MEAN CORPUSCULAR VOLUME 97.2 fL (81.0-99.0); MEAN PLATELET VOLUME 10.1 fL (7.9-10.8); MONOCYTES # (AUTO) 0.8 10^3/uL (0.0-1.0); MONOCYTES % (AUTO) 10.3 %; NEUTROPHILS # (AUTO) 4.6 10^3/uL (1.5-6.6); PLT - PLATELET COUNT 306 10^3/uL (130-450); RED BLOOD COUNT 3.86 10^6/uL (4.20-5.40); RED CELL DISTRIBUTION WIDTH 16.2 % (12.0-15.0); WHITE BLOOD COUNT 7.4 x10^3/uL (4.8-10.8)
[2021-02-07 18:53] LABS: % IRON SATURATION 23 % (20-50); ALBUMIN 4.2 g/dL (3.2-5.5); BUN - BLOOD UREA NITROGEN 29 mg/dL (6-20); CALCIUM 9.4 mg/dL (8.5-10.3); CARBON DIOXIDE - CO2 28 mmol/L (21-32); CHLORIDE 92 mmol/L (101-111); CHOLESTEROL 161 mg/dL; CREATININE 1.2 mg/dL (0.4-1.0); GFR - MDRD 43 (>89); GLUCOSE 96 mg/dL (70-100); HDL CHOLESTEROL 54 mg/dL; IRON 84 ug/dL (28-170); LDL CHOLESTEROL,CALCULATED 92 mg/dL; LDL/HDL RATIO 1.7 (<4.4); PHOSPHORUS 3.8 mg/dL (2.5-4.6); POTASSIUM 4.3 mmol/L (3.5-5.0); SODIUM 130 mmol/L (135-145); TOTAL IRON BINDING CAPACITY 360 ug/dL (250-450); TRANSFERRIN 257 mg/dL (192-382); TRIGLYCERIDES 75 mg/dL; VLDL CHOLESTEROL 15 mg/dL
== END 2021-02-07 23:59 | disposition home or self-care (01) ==
LOC: LAB.WCP 10:52
PROVIDERS: ATTEND Internal Medicine Nephrology
DX: N18.32 Chronic kidney disease, stage 3b (principal); D63.1 Anemia in chronic kidney disease; R19.7 Diarrhea, unspecified; E78.5 Hyperlipidemia, unspecified
CPT/HCPCS: 36415; 80061; 80069; 82306; 82668; 82728; 83516; 83540; 83721; 84466; 85025

== ENCOUNTER 2021-02-21 08:00 | Outpatient (CLI) | payer MEDICARE, BC ==
[2021-02-21 19:32] LABS: H. PYLORIS ANTIGEN STL NEGATIVE (Negative)
== END 2021-02-21 23:59 | disposition home or self-care (01) ==
LOC: LAB.WCP 08:00
PROVIDERS: ATTEND Internal Medicine
DX: K52.9 Noninfective gastroenteritis and colitis, unspecified (principal)
CPT/HCPCS: 81599; 83993; 87045; 87329; 87338; 87427; 87449; 87493

== ENCOUNTER 2021-03-08 17:33 | Outpatient (CLI) | payer MEDICARE, BC | END 2021-03-08 17:34 | disposition critical access hospital (66) | LOC: EMS 17:33 | DX: Z04.3 Encounter for examination and observation following other accident (principal); M25.552 Pain in left hip | CPT/HCPCS: A0425; A0427 ==

== ENCOUNTER 2021-03-08 17:53 | Emergency (ER) | payer MEDICARE, BC ==
--- NOTE | 2021-03-08 18:22 | ED Physician Documentation ---
PD HPI LOWER EXT INJURY - Stated complaint Stated Complaint: GLF - Chief complaint Chief Complaint: Trauma Ext - History obtained from History obtained from: Patient, EMS - History of Present Illness PD HPI LOW EXT INJURY LOCATION: Left, Hip Type of injury: Fall (She states her feet tripped up in the blankets and sheets when she was changing the bed and she tripped and fell to the left with pain in the left hip. Prior hip replacement in 2013. 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 Did not attempt to get up.) Improved by: Rest Worsened by: Moving Associated symptoms: No: Weakness, Numbness Similar symptoms before: Has not had sx before Recently seen: Not recently seen Review of Systems Constitutional: reports: Other (ate breakfast 10 am. Small bite of food about 2 pm. Had emesis from pain meds enroute to ER.). denies: Fever, Chills Nose: denies: Rhinorrhea / runny nose, Congestion Throat: denies: Sore throat Respiratory: denies: Cough Skin: denies: Abrasion (s), Laceration (s) Neurologic: denies: Focal weakness, Numbness, Confused, Altered mental status, Head injury, LOC PD PAST MEDICAL HISTORY - Past Medical History Cardiovascular: Hypertension, High cholesterol Respiratory: None Endocrine/Autoimmune: HyPOthyroidism GI: Other : Frequency HEENT: Other Psych: None Musculoskeletal: Osteoarthritis, Other Derm: None - Past Surgical History Past Surgical History: Yes Ortho: Hip replacement, Knee replacement /EXERCISE SPECIALIST: Dilation and currettage HEENT: Cataracts - Present Medications Home Medications: Ambulatory Orders Medication Instructions Recorded Confirmed Aspirin EC [Ecotrin] 81 mg PO DAILY 12/03/12 04/18/14 Cetirizine HCl [Zyrtec] 10 mg PO DAILY 12/03/12 04/18/14 Levothyroxine Sodium [Levothroid] 137 mcg PO QDAC 12/03/12 04/18/14 Lovastatin 20 mg PO QPM 12/03/12 04/18/14 Metoprolol Tartrate 12.5 mg PO DAILY 12/03/12 04/18/14 Multivitamin [Multivitamins] 1 each PO DAILY 12/03/12 04/18/14 Naproxen Sodium [Aleve] 220 mg PO DAILY 12/03/12 04/18/14 Potassium Gluconate 550 mg PO BID 12/03/12 04/18/14 Tolterodine [Detrol LA] 4 mg PO DAILY 12/03/12 04/18/14 Travoprost 0.004% Ophth Drops 1 drops OPTH QPM 12/03/12 04/18/14 [Travatan Z] Triamterene/Hydrochlorothiazid 1 each PO DAILY 12/03/12 04/18/14 [Maxzide 75 mg-50 mg Tablet] Ascorbate Calcium [Vitamin C] 1,000 mg PO DAILY 04/14/14 04/18/14 Calcium Carbonate/Vitamin D3 1 each PO DAILY 04/14/14 04/18/14 [Calcium 600 + D3 Softgel] Cholecalciferol (Vitamin D3) 1,000 mg PO DAILY 04/14/14 04/18/14 [Vitamin D] Cyanocobalamin [Vitamin B-12] 500 mcg PO DAILY 04/14/14 04/18/14 Oxycodone HCl/Acetaminophen 1 - 2 each PO Q6H PRN #20 tablet 10/19/20 [Percocet 5-325 mg Tablet] - Allergies Allergies/Adverse Reactions: Allergies Allergy/AdvReac Type Severity Reaction Status Date / Time latex Allergy Intermediate Redness Verified 10/19/20 17:21 and itching tape Allergy Intermediate Redness Uncoded 10/19/20 17:21 and itching - Social History Does the pt smoke?: No Smoking Status: Never smoker Does the pt drink ETOH?: No Does the pt have substance abuse?: No - Immunizations Immunizations are current?: Yes PD ED PE NORMAL - Vitals Vital signs reviewed: Yes - General General: Alert and oriented X 3, No acute distress, Well developed/nourished - HEENT HEENT: Atraumatic - Neck Neck: Supple, no meningeal sign, No bony TTP, No adenopathy - Cardiac Cardiac: RRR, No murmur - Respiratory Respiratory: Clear bilaterally, Other (no chestwall tenderness) - Abdomen Abdomen: Soft, Non tender - Derm Derm: Normal color, Warm and dry - Extremities Extremities: Other (left hip with tenderness to palpation and with any slight movement of the joint. Feels better with distraction of leg, worse with impaction lightly. ) - Neuro Neuro: Alert and oriented X 3, No motor deficit, No sensory deficit, Normal speech Eye Opening: Spontaneous Motor: Obeys Commands Verbal: Oriented GCS Score: 15 Results - Vitals Vitals: Vital Signs - 24 hr 03/08/21 03/08/21 03/08/21 18:02 19:27 19:29 Temperature 36.6 C Heart Rate 76 71 Respiratory 16 18 Rate Blood Pressure 123/46 L 153/67 H O2 Saturation 97 91 L 96 03/08/21 03/08/21 03/08/21 19:35 19:40 19:45 Temperature Heart Rate 66 67 68 Respiratory 16 16 13 Rate Blood Pressure 125/57 L 126/56 L 122/54 L O2 Saturation 93 90 L 97 03/08/21 03/08/21 03/08/21 19:50 19:55 20:00 Temperature Heart Rate 70 56 L 73 Respiratory 15 17 17 Rate Blood Pressure 124/74 131/110 H O2 Saturation 96 96 96 03/08/21 03/08/21 03/08/21 20:15 20:32 20:36 Temperature 36.0 C L Heart Rate 70 71 Respiratory 15 18 Rate Blood Pressure 141/55 H 140/74 H 140/74 H O2 Saturation 94 96 03/08/21 03/08/21 03/08/21 20:38 20:49 21:18 Temperature 36.8 C 36.9 C Heart Rate 73 71 73 Respiratory 18 16 18 Rate Blood Pressure 140/74 H 141/65 H 148/73 H O2 Saturation 94 100 96 03/08/21 21:31 Temperature 36.2 C L Heart Rate 68 Respiratory 17 Rate Blood Pressure 140/66 H O2 Saturation 97 Oxygen O2 Source [] Nasal cannula O2 Source Room air - Rads (name of study) left hip Radiology: Prelim report reviewed (posterior dislocation, without fracture. ), See rad report PD MEDICAL DECISION MAKING - ED course Complexity details: reviewed results, re-evaluated patient (discussed with patient wanting to do sedation and reduction. She is in agreement. ), considered differential, d/w patient ED course: care turned over to Dr. Ibarra at [facility]. Patient advised and Dr. Ibarra introduced to the patient. Departure - Departure Disposition: 01 Home, Self Care Clinical Impression: Hip dislocation, left Condition: Stable Instructions: ED Hip Replace Dislocation Reduc Follow-Up: Jf Keller MD [Provider Admit Priv/Credential] - Gary Norton MD [Primary Care Provider] - Discharge Date/Time: 03/08/21 21:32
[2021-03-08] MEDS ORDERED: DROPERIDOL 5 MG/2 ML VIAL IVP STA (18:28)
[2021-03-08] MEDS ORDERED: KETOROLAC 30 MG/ML VIAL IVP STA (18:28)
[2021-03-08] MEDS ORDERED: fentaNYL 100 MCG/2 ML VIAL IVP STA (19:08)
[2021-03-08] MEDS: PROPOFOL 200 MG/20 ML VIAL IVP STA ×2 (19:31→19:32)
--- NOTE | 2021-03-08 19:35 | XRAY Report ---
PROCEDURE: Hip w/Pelvis 2-3V LT INDICATIONS: fall with hip pain; prior hip replacement TECHNIQUE: AP pelvis with lateral view(s) of the left hip(s). COMPARISON: April 18, 2014. FINDINGS: BONES/JOINT: No acute, displaced fracture. Superior displacement of the prosthetic femoral head in re lation to the acetabulum, compatible dislocation. 5 mm lucency along the superior aspect of the aceta bular component. SOFT TISSUES: No focal abnormality. IMPRESSION: 1.Left prosthetic hip dislocation. 2.5 mm lucency along the superior aspect of the acetabular component, concerning for loosening versus prior revision. Reviewed by: Armond Weber MD on 03/08/2021 7:33 PM PST Approved by: Armond Weber MD on 03/08/2021 7:33 PM PST Station ID: [id number]
--- NOTE | 2021-03-08 19:48 | ED Physician Documentation ---
PD HPI LOWER EXT INJURY - Stated complaint Stated Complaint: GLF - Chief complaint Chief Complaint: Trauma Ext - History obtained from History obtained from: Patient - History of Present Illness PD HPI LOW EXT INJURY LOCATION: Left, Hip Type of injury: Fall, Twist Where injury occurred: Home Timing - onset: Today Timing - duration: Minutes Timing - details: Abrupt onset, Still present Improved by: Rest, Immobilization Worsened by: Moving, Palpating Associated symptoms: No: Weakness, Numbness, Tingling, Swelling, Discolored Contributing factors: Prior ortho surgery, Prosthetic joint. No: Anticoagulated Similar symptoms before: Has not had sx before Recently seen: Not recently seen - Additional information Additional information: Previously well 80-year-old female was changing the bed sheets today when she got her feet tangled in the bed sheets and fell to her side. She has dislocated the prosthesis of her left hip. She is transported to the hospital by ambulance and received pain medication in route. She has been attended to by Dr. Woodard and her care has been turned over to me by Dr. Woodard at shift change. The patient reports nausea from the pain medication and this was improved by administration of inapsine. The patient reports that she did not otherwise injure herself in the fall. Review of Systems Constitutional: denies: Fever Eyes: denies: Decreased vision Ears: denies: Ear pain Nose: denies: Congestion Throat: denies: Sore throat Respiratory: denies: Cough GI: denies: Vomiting PD PAST MEDICAL HISTORY - Past Medical History Cardiovascular: Hypertension, High cholesterol Respiratory: None Endocrine/Autoimmune: HyPOthyroidism GI: Other : Frequency HEENT: Other Psych: None Musculoskeletal: Osteoarthritis, Other Derm: None - Past Surgical History Past Surgical History: Yes Ortho: Hip replacement, Knee replacement /TALENT DEVELOPMENT DIRECTOR: Dilation and currettage HEENT: Cataracts - Present Medications Home Medications: Ambulatory Orders Medication Instructions Recorded Confirmed Aspirin EC [Ecotrin] 81 mg PO DAILY 12/03/12 04/18/14 Cetirizine HCl [Zyrtec] 10 mg PO DAILY 12/03/12 04/18/14 Levothyroxine Sodium [Levothroid] 137 mcg PO QDAC 12/03/12 04/18/14 Lovastatin 20 mg PO QPM 12/03/12 04/18/14 Metoprolol Tartrate 12.5 mg PO DAILY 12/03/12 04/18/14 Multivitamin [Multivitamins] 1 each PO DAILY 12/03/12 04/18/14 Naproxen Sodium [Aleve] 220 mg PO DAILY 12/03/12 04/18/14 Potassium Gluconate 550 mg PO BID 12/03/12 04/18/14 Tolterodine [Detrol LA] 4 mg PO DAILY 12/03/12 04/18/14 Travoprost 0.004% Ophth Drops 1 drops OPTH QPM 12/03/12 04/18/14 [Travatan Z] Triamterene/Hydrochlorothiazid 1 each PO DAILY 12/03/12 04/18/14 [Maxzide 75 mg-50 mg Tablet] Ascorbate Calcium [Vitamin C] 1,000 mg PO DAILY 04/14/14 04/18/14 Calcium Carbonate/Vitamin D3 1 each PO DAILY 04/14/14 04/18/14 [Calcium 600 + D3 Softgel] Cholecalciferol (Vitamin D3) 1,000 mg PO DAILY 04/14/14 04/18/14 [Vitamin D] Cyanocobalamin [Vitamin B-12] 500 mcg PO DAILY 04/14/14 04/18/14 Oxycodone HCl/Acetaminophen 1 - 2 each PO Q6H PRN #20 tablet 10/19/20 [Percocet 5-325 mg Tablet] - Allergies Allergies/Adverse Reactions: Allergies Allergy/AdvReac Type Severity Reaction Status Date / Time latex Allergy Intermediate Redness Verified 10/19/20 17:21 and itching tape Allergy Intermediate Redness Uncoded 10/19/20 17:21 and itching - Social History Does the pt smoke?: No Smoking Status: Never smoker Does the pt drink ETOH?: No Does the pt have substance abuse?: No - Immunizations Immunizations are current?: Yes PD ED PE NORMAL - Vitals Vital signs reviewed: Yes (normal ) - General General: Alert and oriented X 3, No acute distress, Well developed/nourished - HEENT HEENT: Atraumatic, PERRL, EOMI, Other - Respiratory Respiratory: No respiratory distress - Derm Derm: Normal color, Warm and dry, No rash - Extremities Extremities: Other (The left LE is shortened and externally rotated. There is tenderness to palpation of the trochanter. 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, No motor deficit, No sensory deficit, Normal speech Eye Opening: Spontaneous Motor: Obeys Commands Verbal: Oriented GCS Score: 15 - Psych Psych: Normal mood, Normal affect Results - Vitals Vitals: Vital Signs - 24 hr 03/08/21 03/08/21 03/08/21 18:02 19:27 19:29 Temperature 36.6 C Heart Rate 76 71 Respiratory 16 18 Rate Blood Pressure 123/46 L 153/67 H O2 Saturation 97 91 L 96 03/08/21 03/08/21 03/08/21 19:35 19:40 19:45 Temperature Heart Rate 66 67 68 Respiratory 16 16 13 Rate Blood Pressure 125/57 L 126/56 L 122/54 L O2 Saturation 93 90 L 97 03/08/21 03/08/21 03/08/21 19:50 19:55 20:00 Temperature Heart Rate 70 56 L 73 Respiratory 15 17 17 Rate Blood Pressure 124/74 131/110 H O2 Saturation 96 96 96 03/08/21 03/08/21 03/08/21 20:15 20:32 20:36 Temperature 36.0 C L Heart Rate 70 71 Respiratory 15 18 Rate Blood Pressure 141/55 H 140/74 H 140/74 H O2 Saturation 94 96 03/08/21 03/08/21 03/08/21 20:38 20:49 21:18 Temperature 36.8 C 36.9 C Heart Rate 73 71 73 Respiratory 18 16 18 Rate Blood Pressure 140/74 H 141/65 H 148/73 H O2 Saturation 94 100 96 03/08/21 21:31 Temperature 36.2 C L Heart Rate 68 Respiratory 17 Rate Blood Pressure 140/66 H O2 Saturation 97 Oxygen O2 Source [] Nasal cannula O2 Source Room air - Rads (name of study) hip L Radiology: Prelim report reviewed (Impression: 1. Left prosthetic hip dislocati on. 2.5 mm lucency along the superior aspect of the acetabular component, concerning for loosening versus prior revision.), EMP read indepedently, See rad report post reduction L hip Radiology: Prelim report reviewed (Impression: 1. Post reduction of the patient's left hip arthroplasty.), EMP read indepedently (In comparison with films done from 2015 this 5 mm lucency appears present at that time as well.), See rad report Procedures - Reduction Body part reduced: Left, Hip, prosthetic Fracture or dislocation: Dislocation Anesthesia: Other (conscious sedation with propofol) Hip reduction technique: Allis - flex/pull/rotate Reduction aftercare: NV intact, Xray confirms reduction, Alignment improved, Patient tolerated well - Procedural sedation Sedation prep: Informed consent, Time out completed, Last meal (1300), PE performed, ASA 1 - healthy, IV O2 monitor, ET CO2 monitor, RT present Sedation Medications: propofol (60mg total on first attempt at 1925 and 40mg on second attempt at 1933) Mallampati classification: II Patient status during sedation: Unresponsive, Vitals remained stable, Maintained airway, Recovered uneventfully Sedation recovery: Recovered uneventfully, Back to baseline Time in sedation (Minutes): 22 (required sedation attempted reduction and re- sedation for successful reduction ) PD MEDICAL DECISION MAKING - ED course Complexity details: reviewed old records, reviewed results, re-evaluated patient, considered differential, d/w patient ED course: 80-year-old female with a 6-year-old left hip prosthesis has dislocated after a fall with feet twisted in the bed sheets. Patient has never had a problem previously with dislocation of his hip prosthesis and she is expected to do well with this. Departure - Departure Disposition: 01 Home, Self Care Clinical Impression: Hip dislocation, left Qualifiers: Encounter type: initial encounter Qualified Code(s): S73.005A - Unspecified dislocation of left hip, initial encounter Condition: Stable Instructions: ED Hip Replace Dislocation Reduc Follow-Up: Gary Norton MD [Primary Care Provider] - Jf Keller MD [Provider Admit Priv/Credential] - Discharge Date/Time: 03/08/21 21:32
--- NOTE | 2021-03-08 19:55 | XRAY Report ---
PROCEDURE: Hip w/Pelvis 1V LT INDICATIONS: post reduction TECHNIQUE: AP pelvis. COMPARISON: Prior study of same day. FINDINGS: BONES/JOINT: No acute, displaced fracture. Interval reduction of the patient's prosthetic left hip di slocation. 5 mm lucency along the superior aspect of the acetabular component. SOFT TISSUES: No focal abnormality. IMPRESSION: 1.Post reduction of the patient's left hip arthroplasty. Reviewed by: Armond Weber MD on 03/08/2021 7:53 PM PST Approved by: Armond Weber MD on 03/08/2021 7:53 PM PST Station ID: [id number]
[2021-03-08 21:32] VITALS: BP 140/66
== END 2021-03-08 21:32 | disposition home or self-care (01) ==
LOC: EDUNIT# → ED 17:53
DX: T84.021A Dislocation of internal left hip prosthesis, initial encounter (principal); Y83.1 Surgical operation with implant of artificial internal device as the cause of abnormal reaction of the patient, or of later complication, without mention of misadventure at the time of the procedure; W01.0XXA Fall on same level from slipping, tripping and stumbling without subsequent striking against object, initial encounter; Y93.E9 Activity, other interior property and clothing maintenance; Y92.003 Bedroom of unspecified non-institutional (private) residence as the place of occurrence of the external cause; R11.0 Nausea; T50.905A Adverse effect of unspecified drugs, medicaments and biological substances, initial encounter; Y92.538 Other ambulatory health services establishments as the place of occurrence of the external cause; I10 Essential (primary) hypertension; Z79.82 Long term (current) use of aspirin
CPT/HCPCS: 27266; 94770; 99152

== ENCOUNTER 2021-04-05 08:00 | Outpatient (CLI) | payer MEDICARE, BC ==
[2021-04-05 18:35] LABS: ALBUMIN 4.1 g/dL (3.2-5.5); ALBUMIN/GLOBULIN RATIO 1.2 (1.0-2.2); ALKALINE PHOSPHATASE 54 IU/L (42-121); ALT ALANINE AMINOTRANSFERASE 15 IU/L (10-60); AST ASPARTATE AMINOTRANSFERASE 23 IU/L (10-42); BUN - BLOOD UREA NITROGEN 33 mg/dL (6-20); CALCIUM 9.7 mg/dL (8.5-10.3); CARBON DIOXIDE - CO2 28 mmol/L (21-32); CHLORIDE 93 mmol/L (101-111); CHOL/HDL RATIO 3.2 (<4.4); CHOLESTEROL 203 mg/dL; CREATININE 1.1 mg/dL (0.4-1.0); GFR - MDRD 48 (>89); GLUCOSE 97 mg/dL (70-100); HDL CHOLESTEROL 64 mg/dL; LDL CHOLESTEROL,CALCULATED 128 mg/dL; POTASSIUM 4.6 mmol/L (3.5-5.0); SODIUM 131 mmol/L (135-145); TOTAL PROTEIN 7.4 g/dL (6.7-8.2); TRIGLYCERIDES 56 mg/dL; VLDL CHOLESTEROL 11 mg/dL
== END 2021-04-05 23:59 | disposition home or self-care (01) ==
LOC: LAB.WCP 08:00
PROVIDERS: ATTEND Internal Medicine Cardiovascular Disease
DX: E78.5 Hyperlipidemia, unspecified (principal)
CPT/HCPCS: 36415; 80053; 80061; 83721

== ENCOUNTER 2021-08-06 11:46 | Outpatient (CLI) | payer MEDICARE, BC ==
[2021-08-06 17:56] LABS: ALBUMIN/GLOBULIN RATIO 1.3 (1.0-2.2); BILIRUBIN,TOTAL 0.7 mg/dL (0.2-1.0); CALCIUM 9.4 mg/dL (8.5-10.3); CREATININE 1.1 mg/dL (0.4-1.0); POTASSIUM 4.5 mmol/L (3.5-5.0); TOTAL PROTEIN 7.1 g/dL (6.7-8.2)
[2021-08-06 18:07] LABS: THYROID STIMULATING HORMONE 0.55 uIU/mL (0.34-5.60)
[2021-08-06 18:15] LABS: BASOPHILS # (AUTO) 0.1 10^3/uL (0.0-0.1); BASOPHILS % (AUTO) 0.9 %; EOSINOPHILS # (AUTO) 0.3 10^3/uL (0.0-0.7); EOSINOPHILS % (AUTO) 4.2 %; HCT - HEMATOCRIT 33.4 % (37.0-47.0); HGB - HEMOGLOBIN 10.8 g/dL (12.0-16.0); LYMPHOCYTES # (AUTO) 1.8 10^3/uL (1.5-3.5); LYMPHOCYTES % (AUTO) 24.8 %; MEAN CORPUSCULAR HEMOGLOBIN 30.7 pg (27.0-31.0); MEAN CORPUSCULAR HGB CONC 32.3 g/dL (32.0-36.0); MEAN CORPUSCULAR VOLUME 94.9 fL (81.0-99.0); MEAN PLATELET VOLUME 10.1 fL (7.9-10.8); NEUTROPHILS # (AUTO) 4.2 10^3/uL (1.5-6.6); NEUTROPHILS % (AUTO) 56.8 %; PLT - PLATELET COUNT 291 10^3/uL (130-450); RED BLOOD COUNT 3.52 10^6/uL (4.20-5.40); RED CELL DISTRIBUTION WIDTH 16.6 % (12.0-15.0); WHITE BLOOD COUNT 7.4 x10^3/uL (4.8-10.8)
== END 2021-08-06 11:47 | disposition home or self-care (01) ==
LOC: LAB.N 11:46
PROVIDERS: ATTEND Internal Medicine Cardiovascular Disease
DX: I10 Essential (primary) hypertension (principal); E87.1 Hypo-osmolality and hyponatremia; E03.9 Hypothyroidism, unspecified; K52.9 Noninfective gastroenteritis and colitis, unspecified
CPT/HCPCS: 36415; 80053; 83930; 84443; 85025

== ENCOUNTER 2021-08-14 11:55 | Outpatient (CLI) | payer MEDICARE, BC ==
[2021-08-14 17:49] LABS: ABSOLUTE RETICS # AUTO 0.059 10^6/uL (0.020-0.110); RED BLOOD COUNT 3.61 10^6/uL (4.20-5.40); RETICULOCYTE COUNT % (AUTO) 1.64 % (0.5-2.3)
[2021-08-14 18:22] LABS: % IRON SATURATION 21 % (20-50); IRON 78 ug/dL (28-170); TOTAL IRON BINDING CAPACITY 372 ug/dL (250-450); TRANSFERRIN 266 mg/dL (192-382)
[2021-08-14 18:32] LABS: FERRITIN 33.8 ng/mL (11.0-306.8)
== END 2021-08-14 11:56 | disposition home or self-care (01) ==
LOC: LAB.N 11:55
PROVIDERS: ATTEND Internal Medicine
DX: D64.9 Anemia, unspecified (principal); N18.32 Chronic kidney disease, stage 3b
CPT/HCPCS: 36415; 82607; 82668; 82728; 83540; 84466; 85045

== ENCOUNTER 2021-10-03 16:19 | Outpatient (CLI) | payer MEDICARE, BC ==
[2021-10-03 20:55] LABS: BASOPHILS # (AUTO) 0.1 10^3/uL (0.0-0.1); EOSINOPHILS # (AUTO) 0.3 10^3/uL (0.0-0.7); EOSINOPHILS % (AUTO) 3.3 %; HCT - HEMATOCRIT 37.2 % (37.0-47.0); LYMPHOCYTES % (AUTO) 25.8 %; MEAN CORPUSCULAR HGB CONC 32.3 g/dL (32.0-36.0); MEAN CORPUSCULAR VOLUME 96.1 fL (81.0-99.0); MEAN PLATELET VOLUME 9.8 fL (7.9-10.8); MONOCYTES % (AUTO) 13.4 %; NEUTROPHILS # (AUTO) 4.3 10^3/uL (1.5-6.6); NEUTROPHILS % (AUTO) 56.2 %; PLT - PLATELET COUNT 277 10^3/uL (130-450); RED BLOOD COUNT 3.87 10^6/uL (4.20-5.40); RED CELL DISTRIBUTION WIDTH 16.7 % (12.0-15.0); WHITE BLOOD COUNT 7.6 x10^3/uL (4.8-10.8)
[2021-10-03 21:06] LABS: ALBUMIN 3.8 g/dL (3.2-5.5); CALCIUM 9.4 mg/dL (8.5-10.3); CREATININE 1.2 mg/dL (0.4-1.0); PHOSPHORUS 4.2 mg/dL (2.5-4.6); POTASSIUM 4.6 mmol/L (3.5-5.0)
== END 2021-10-03 16:20 | disposition home or self-care (01) ==
LOC: LAB.N 16:19
PROVIDERS: ATTEND Internal Medicine Nephrology
DX: N18.30 Chronic kidney disease, stage 3 unspecified (principal)
CPT/HCPCS: 36415; 80069; 85025

== ENCOUNTER 2022-06-12 14:54 | Outpatient (CLI) | payer MEDICARE, BC ==
--- NOTE | 2022-06-13 10:18 | XRAY Report ---
PROCEDURE: Shoulder 3 View RT INDICATIONS: PAIN IN RIGHT SHOULDER TECHNIQUE: 3 views of the shoulder were acquired. COMPARISON: None. FINDINGS: Bones: Patchy demineralization. There is severe glenohumeral joint space loss and elevation of the hu meral head and glenoid fossa. There is undersurface remodeling of the acromion. Prominent humeral hea d, acromial, and glenoid fossa spurs. Subcortical cystic changes and sclerosis is present at the chrystal ohumeral joint. Soft tissues: There is an ovoid calcification projecting anterior and inferior to the glenohumeral teodora int measuring approximately 9 mm, potentially intra-articular loose body. The visible right upper escobar g field is within normal limits. Soft tissues are otherwise unremarkable. IMPRESSION: 1. Severe glenohumeral joint osteoarthritis. 2. Possible intra-articular loose body in the glenohumeral joint. 3. Changes of chronic, long-standing rotator cuff injury Reviewed by: Minnie Mendoza MD on 06/13/2022 10:17 AM PDT Approved by: Minnie Mendoza MD on 06/13/2022 10:17 AM PDT Station ID: [id number]
== END 2022-06-12 14:55 | disposition home or self-care (01) ==
LOC: DI 14:54
PROVIDERS: ATTEND Internal Medicine
DX: M19.011 Primary osteoarthritis, right shoulder (principal)

== ENCOUNTER 2023-03-13 12:44 | Outpatient (CLI) | payer MEDICARE, BC ==
[2023-03-13 17:53] LABS: BASOPHILS # (AUTO) 0.1 10^3/uL (0.0-0.1); EOSINOPHILS # (AUTO) 0.2 10^3/uL (0.0-0.7); HCT - HEMATOCRIT 36.2 % (37.0-47.0); HGB - HEMOGLOBIN 11.6 g/dL (12.0-16.0); LYMPHOCYTES # (AUTO) 1.4 10^3/uL (1.5-3.5); LYMPHOCYTES % (AUTO) 19.5 %; MEAN CORPUSCULAR HEMOGLOBIN 31.9 pg (27.0-31.0); MEAN CORPUSCULAR VOLUME 99.5 fL (81.0-99.0); MEAN PLATELET VOLUME 10.1 fL (7.9-10.8); MONOCYTES # (AUTO) 0.9 10^3/uL (0.0-1.0); NEUTROPHILS # (AUTO) 4.8 10^3/uL (1.5-6.6); NEUTROPHILS % (AUTO) 65.2 %; PLT - PLATELET COUNT 264 10^3/uL (130-450); RED BLOOD COUNT 3.64 10^6/uL (4.20-5.40); RED CELL DISTRIBUTION WIDTH 16.7 % (12.0-15.0); WHITE BLOOD COUNT 7.3 x10^3/uL (4.8-10.8)
[2023-03-13 18:18] LABS: ALBUMIN 4.1 g/dL (3.2-5.5); ALBUMIN/GLOBULIN RATIO 1.4 (1.0-2.2); ALKALINE PHOSPHATASE 53 IU/L (42-121); ALT ALANINE AMINOTRANSFERASE 28 IU/L (10-60); AST ASPARTATE AMINOTRANSFERASE 26 IU/L (10-42); BILIRUBIN,TOTAL 0.4 mg/dL (0.2-1.0); BUN - BLOOD UREA NITROGEN 19 mg/dL (6-20); CALCIUM 9.8 mg/dL (8.5-10.3); CARBON DIOXIDE - CO2 27 mmol/L (21-32); CHLORIDE 97 mmol/L (101-111); CHOL/HDL RATIO 2.6 (<4.4); CHOLESTEROL 179 mg/dL; CREATININE 1.2 mg/dL (0.6-1.3); GFR - MDRD 43 (>89); GLUCOSE 92 mg/dL (74-104); HDL CHOLESTEROL 70 mg/dL; LDL CHOLESTEROL,CALCULATED 95 mg/dL; LDL/HDL RATIO 1.4 (<4.4); POTASSIUM 4.5 mmol/L (3.5-4.5); SODIUM 134 mmol/L (135-145); TRIGLYCERIDES 70 mg/dL (48-352); VLDL CHOLESTEROL 14 mg/dL
[2023-03-13 18:28] LABS: THYROID STIMULATING HORMONE 3.09 uIU/mL (0.34-5.60)
== END 2023-03-13 12:45 | disposition home or self-care (01) ==
LOC: LAB.N 12:44
PROVIDERS: ATTEND Internal Medicine
DX: I12.9 Hypertensive chronic kidney disease with stage 1 through stage 4 chronic kidney disease, or unspecified chronic kidney disease (principal); N18.9 Chronic kidney disease, unspecified; D63.1 Anemia in chronic kidney disease; E78.5 Hyperlipidemia, unspecified; E03.9 Hypothyroidism, unspecified
CPT/HCPCS: 36415; 80053; 80061; 83721; 84443; 85025

== ENCOUNTER 2023-09-22 14:09 | Outpatient (CLI) | payer MEDICARE, BC ==
[2023-09-22 18:23] LABS: THYROID STIMULATING HORMONE 2.49 uIU/mL (0.34-5.60)
== END 2023-09-22 14:10 | disposition home or self-care (01) ==
LOC: LAB.N 14:09
PROVIDERS: ATTEND Internal Medicine
DX: L65.9 Nonscarring hair loss, unspecified (principal)
CPT/HCPCS: 36415; 84443